=== PATIENT | female | born 1945 | race Caucasian/White ===

== ENCOUNTER 2017-01-27 10:10 | Emergency (ER) | payer OTHER ==
--- NOTE | 2017-01-27 10:39 | EDPHY ---
H & P Stated Complaint: skin inflammation Time Seen by Provider: 01/27/17 10:31 HPI/ROS: CHIEF COMPLAINT: Left cheek swelling. HISTORY OF PRESENT ILLNESS: The patient is a 71-year-old female who presents with left cheek erythema and swelling since , at which time she returned from a trip to [place]. The symptoms began as moderately sized papules on her cheek. The surrounding area then became erythematous and warm. She now has noticed some erythema and swelling on her right cheek. She denies sunburn, new cosmetics use. She denies trismus, difficulty swallowing, difficulty breathing. No dental pain. No fever, chills, chest pain, shortness of breath, palpitations, vomiting, diarrhea, urinary complaints, headache, lightheadedness. REVIEW OF SYSTEMS: Aside from elements discussed in the HPI, a comprehensive 10-point review of systems was reviewed and is negative. PAST MEDICAL HISTORY: Hypoglycemia, C-spine surgery SOCIAL HISTORY: Former smoker. VITAL SIGNS: Reviewed by me GENERAL: Well-developed, well-nourished, resting comfortably in no respiratory distress. HEENT: Atraumatic. Eyes: No icterus, no injection. Mouth: moist mucous membranes. No erythema or lesions. Neck: supple with no adenopathy. NEURO: Alert and oriented, grossly nonfocal. SKIN: Mildly swollen erythematous left cheek with papules. Scattered papules on right cheek. PSYCHIATRIC: Normal mentation, no agitation. Portions of this note were transcribed by a medical research associate. I personally performed a history, physical exam, medical decision making, and confirmed accuracy of information the transcribed note. Source: Patient Exam Limitations: No limitations - Personal History Current Tetanus Diphtheria and Acellular Pertussis (TDAP): Yes - Medical/Surgical History Hx Asthma: No Hx Chronic Respiratory Disease: No Hx Diabetes: No Hx Cardiac Disease: No Hx Renal Disease: No Hx Cirrhosis: No Hx Alcoholism: No Hx HIV/AIDS: No Hx Splenectomy or Spleen Trauma: No Other PMH: hypoglycemia, C-spine surgery - Social History Smoking Status: Former smoker Constitutional: Initial Vital Signs Temperature (C) 36.9 C 01/27/17 10:14 Heart Rate 64 01/27/17 10:14 Respiratory Rate 16 01/27/17 10:14 Blood Pressure 124/90 H 01/27/17 10:14 O2 Sat (%) 96 01/27/17 10:14 O2 Delivery Mode Room Air Allergies/Adverse Reactions: Sugars, Metabolically Active Allergy (Intermediate, Verified 09/06/15 13:47) Sulfa (Sulfonamide Antibiotics) Allergy (Intermediate, Verified 09/06/15 13:46) gluten Allergy (Verified 09/13/15 11:53) Home Medications: Medication Instructions Recorded Estrogen 1mg 0.5 mg PO Q2D 09/06/15 Estrogen 1mg 1 mg PO Q2D 09/06/15 Progesterone 2.5mg 1.25 mg PO HS 09/06/15 HYDROcodone/APAP 10/325 [Valdez 1 - 2 tab PO Q6 PRN #0 tab 09/30/15 10/325 (*)] Methocarbamol [Robaxin 750 mg (*)] 750 mg PO QID PRN #0 tab 09/30/15 Cephalexin [Keflex (RX)] 500 mg PO QID 7 Days 01/27/17 Medical Decision Making ED Course/Re-evaluation: This patient presents with erythema, swelling, and papules on her left cheek. She has no signs of systemic illness. I will place her on Keflex for cellulitis and she understands to follow up with her primary care provider if she does not improve. She is comfortable with the plan. Differential Diagnosis: Differential diagnoses for the patient's symptom complex was considered including but not limited to contact dermatitis, allergic reaction, cellulitis, insect bite with surrounding cellulitis, sunburn. Departure - Departure Disposition: Home, Routine, Self-Care Clinical Impression: Cellulitis of cheek Condition: Good Instructions: Cellulitis (ED) Additional Instructions: Take Keflex as prescribed. Do not use Retin-A while this infection is present. Follow up with your primary care provider this week if symptoms are not improving. Return for fever, vomiting, worsening swelling, red streaking, or any other serious worsening of condition. Referrals: ALEXSANDER CHU [Primary Care Provider] - As per Instructions Prescriptions: Cephalexin [Keflex (RX)] 500 mg PO QID 7 Days Report Scribed for: Josephine Jarvis Report Scribed by: Jaziel Troy Date of Report: 01/27/17 Time of Report: 10:48
[2017-01-27 11:17] VITALS: BP 113/78; PULSE 56; RESP 18; TEMP 97.5; O2SAT 93
== END 2017-01-27 11:17 | disposition home or self-care (01) ==
DX: L03.211 Cellulitis of face (principal); Z87.891 Personal history of nicotine dependence

== ENCOUNTER 2017-07-31 05:35 | Day surgery (SDC) | payer OTHER ==
[2017-07-31] MEDS ORDERED: GABAPENTIN 300 MG CAP PO ONE (05:49)
[2017-07-31] MEDS ORDERED: ACETAMINOPHEN 500 MG TAB PO ONE (05:49)
[2017-07-31] MEDS ORDERED: ceFAZolin 2 GM/SWFI 2 GM/20 ML SYR IVP ONE (05:49)
[2017-07-31] MEDS ORDERED: LR 1,000 ML IV ONE (05:52)
[2017-07-31] MEDS ORDERED: LIDOCAINE 1% 2 ML INJ ID PRN (05:52)
--- NOTE | 2017-07-31 06:43 | PDANEPAE ---
ANE History of Present Illness 72 year old female w/ PMHx of cervical radiculitis, cervical spinal stenosis and prior ACDF presents for right sided C3-C4 foraminotomy. ANE Past Medical History - Cardiovascular History Hx Hypertension: No Hx Arrhythmias: No Hx Chest Pain: No Hx Coronary Artery / Peripheral Vascular Disease: No Hx CHF / Valvular Disease: No Hx Palpitations: No - Pulmonary History Hx COPD: No Hx Asthma/Reactive Airway Disease: No Hx Recent Upper Respiratory Infection: No Hx Oxygen in Use at Home: No Hx Sleep Apnea: No Sleep Apnea Screening Result - Last Documented: Negative - Neurologic History Hx Cerebrovascular Accident: No Hx Seizures: No Hx Dementia: No - Endocrine History Hx Diabetes: No Hypothyroid: No Hyperthyroid: No Obesity: no - Renal History Hx Renal Disorders: Yes Renal History Comment: PREV INTERSTITIAL CYSTITIS NONE PAST 6 YEARS - Liver History Hx Hepatic Disorders: No - Neurological & Psychiatric Hx Hx Neurological and Psychiatric Disorders: No - Cancer History Hx Cancer: Yes Cancer History Comment: SKIN - Congenital Disorder History Hx Congenital Disorders: No - GI History GERD: no Hx Gastrointestinal Disorders: No Gastrointestinal History Comment: HYPOGLYCEMIA - Other Health History Other Health History: CJD. RECENT CERVICAL STEROID INJECTION - Chronic Pain History Chronic Pain: Yes (RT SIDE NECK INTO RT ARM AND SHLDR) - Surgical History Prior Surgeries: ACDF 09/2015. APPENDECTOMY ANE Review of Systems Review of Systems: - Exercise capacity Exercise capacity: >=4 METS METS (RN): 4 METS ANE Patient History - Allergies Allergies/Adverse Reactions: Sugars, Metabolically Active Allergy (Intermediate, Verified 09/06/15 13:47) Sulfa (Sulfonamide Antibiotics) Allergy (Intermediate, Verified 09/06/15 13:46) gluten Allergy (Verified 09/13/15 11:53) - Home Medications Home medications: home medication list seen and reviewed Home Medications: Estrogen 1mg 0.5 mg PO HS 09/06/15 [Last Taken 07/30/17 20:00] - NPO status NPO Status: no food or drink >8 hours - Anes Hx Anes Hx: no prior problems - Smoking Hx Smoking Status: Former smoker Marijuana use: Yes - Alcohol Use Alcohol Use: Rarely - Family Anes Hx Family Anes Hx: neg - N/A Family Hx Anesthesia Complications: NONE ANE Labs/Vital Signs - Vital Signs Vital Signs: reviewed preoperatively; see RN documention for details Height: 157.48 cm Weight: 53.07 kg ANE Physical Exam - Airway Neck exam: decreased ROM Mallampati Score: Class 2 Mouth exam: normal dental/mouth exam Mouth image: 1 - All Veneers, but in really good condition - Pulmonary Pulmonary: no respiratory distress - Cardiovascular Cardiovascular: regular rate and rhythym - ASA Status ASA Status: II ANE Anesthesia Plan Anesthesia Plan: general endotracheal anesthesia Lines/Monitors: arterial line (Possible arterial line based on blood pressure following induction. ) Total IV Anesthesia: No
[2017-07-31] MEDS ORDERED: CHLORHEXIDINE GLUC HIBICLENS 118 ML BTL TP ONE (06:44)
[2017-07-31] MEDS ORDERED: THROMBIN (BOVINE) 5,000 UNIT VIAL TP ONE ×2 (06:44→08:58)
[2017-07-31] MEDS ORDERED: BACITRACIN 50,000 UNITS/10 ML SYR IRR ONE (06:44)
[2017-07-31] MEDS ORDERED: BUPIVACAINE 0.25% 30 ML SDV ONE (06:44)
--- NOTE | 2017-07-31 06:50 | PDHPUP ---
History & Physical Update H&P update statement: This history and physical update is based on an assessment of the patient which was completed after admission or registration (within 24 hours), but prior to the surgery/procedure. H&P update: H&P reviewed & patient examined, no change in patient's condition since H&P completed
[2017-07-31] MEDS ORDERED: PROPOFOL 200 MG/20 ML VIAL ONE (06:54)
[2017-07-31] MEDS ORDERED: PROPOFOL/EMULSION 500 MG/50 ML BOTTLE IV ONE (06:54)
[2017-07-31] MEDS ORDERED: fentaNYL 100 MCG/2 ML INJ ONE ×2 (06:54→10:07)
[2017-07-31] MEDS ORDERED: REMIFENTANIL HCL 1 MG VIAL ONE (06:54)
[2017-07-31] MEDS ORDERED: MIDAZOLAM 2 MG/2 ML VIAL IVP ONE (07:06)
[2017-07-31] MEDS ORDERED: PHENYLEPHRINE HCL 100 MCG/ML SYR ONE (07:17)
[2017-07-31] MEDS ORDERED: DEXAMETHASONE 4 MG/ML VIAL ONE (07:25)
[2017-07-31] MEDS ORDERED: ONDANSETRON 4 MG/2 ML VIAL ONE (07:25)
[2017-07-31] MEDS ORDERED: POVIDONE-IODINE 30 GM OINTTUBE TP ONE (07:41)
[2017-07-31] MEDS ORDERED: epHEDrine SULFATE 10 MG/ML SYR ONE ×3 (08:04→08:43)
[2017-07-31] MEDS ORDERED: LR 500 ML IV PRN (08:20)
[2017-07-31] MEDS ORDERED: NALOXONE HCL 0.4 MG/ML INJ IVP PRN (08:20)
[2017-07-31] MEDS ORDERED: HYDROmorphONE/DILAUDID 1 MG/ML INJ IVP PRN (08:20)
[2017-07-31] MEDS ORDERED: HYDROCODONE/APAP 5/325 TAB PO PRN (08:20)
[2017-07-31] MEDS ORDERED: DEPO METHYLPREDNISOLONE 40 MG/ML SDV ONE (09:14)
[2017-07-31] MEDS ORDERED: KETOROLAC 30 MG/1 ML SDV ONE (09:18)
--- NOTE | 2017-07-31 09:49 | SOAPPROG ---
SOAP Progress Note Assessment/Plan: Post Op Visit: S: Awake and alert. Pt with expected neck pain O: AFVSS/PERRLA CN 2-12 grossly intact +lt touch 5/5 BUE/BLE = CDI A/P: 72 yo female that is s/p C3/4 foraminotomy -orders in place -dc when criteria met -call with any questions or concerns -pt and understand and agree 07/31/17 09:46 Objective: Vital Signs Temp Pulse Resp BP Pulse Ox 36.4 C 57 L 16 136/79 H 98 07/31/17 06:19 07/31/17 06:19 07/31/17 06:19 07/31/17 06:19 07/31/17 06:19 ICD10 Worksheet Patient Problems: Problems Problem Status Onset Cervical radiculitis Acute Cervical spinal stenosis Acute Cervicalgia Acute
[2017-07-31] MEDS: fentaNYL 100 MCG/2 ML INJ IVP PRN ×2 (10:09→10:43)
--- NOTE | 2017-07-31 10:13 | GOP ---
[f rep st] OPERATIVE REPORT DATE OF OPERATION: 07/31/2017 SURGEON: Precious Allen MD [employer] EXAMINER: Sean Medina, ANNE. PREOPERATIVE DIAGNOSIS: Cervical spondylosis, prior cervical fusion C4-5, 5-6, 6-7, right-sided keeley re cervicalgia with occipital pain. POSTOPERATIVE DIAGNOSIS: Cervical spondylosis, prior cervical fusion C4-5, 5-6, 6-7, right-sided sev ere cervicalgia with occipital pain. PROCEDURE PERFORMED: Posterior cervical foraminotomy, right C3-4 with decompression of the exiting C 4 nerve root with facetectomy (35339), microscope, fluoroscopy. FINDINGS: ESTIMATED BLOOD LOSS: 100 mL INDICATIONS: Ms. Stewart is an elderly female who had history of a multilevel cervical fusion with go od success who developed terrible right sided neck pain. Followup imaging did demonstrate evidence o f some arthritis at the occipital C1-C2 complex. However, there was also subaxial facet arthropathy and severe right-sided foraminal stenosis at C3-4 and I suggested a right C3-4 foraminotomy alone. I did not think that an adjacent segment fusion was warranted, but she understood this sometimes is ne cessary. I thought this was the most reasonable simple approach to try to get relief of the right-si ded neck and shoulder pain and indeed she did want to try this. The risk of nerve injury, spinal flu id leak and continued symptoms was discussed. DESCRIPTION OF PROCEDURE: Patient was taken to the operating room, placed in supine position. Gener al anesthesia was begun. She was placed in the [facility] head frame. Care was taken to pad all point s of contact. She was flipped prone onto chest rolls. Care was taken to pad all points of contact a nd her arms were papoosed at her side. She was secured to the bed with the back up and the neck flex ed at the cervicothoracic junction as well as the occipital cervical junction, but the neck itself ke pt parallel to the floor. She was sterilely prepped and draped in the usual fashion. A localizing x -ray was taken. We made a 14 mm incision above the C3-4 interspace. The subcutaneous tissue was dis sected using Bovie cautery down to the fascia. There was a bifid C3 spinous process and we removed t he right bifid portion of C3. Self-retaining retractors placed. A localizing x-ray was taken. Oper ating microscope was introduced. We drilled a right C3-4 foraminotomy. There were a lot of epidural veins and the some of these were coagulated, but there was a fair amount of bleeding from these. We identified the exiting C4 nerve root and decompressed along its course out beyond the C4 pedicle on the right-hand side and we decompressed from the C4 pedicle to the C3 pedicle. The lateral portion o f the facet was preserved. We did perform a medial facetectomy. We then irrigated with antibiotic s joselito solution, shot a final x-ray confirming the actual location of the decompression in the foramen and it was at C3-4, placed Depo-Medrol over the right C4 root and then closed the incision in multip le layers using Vicryl sutures. The patient was removed from the head frame, put back on the [facility] bed and transferred to recovery room. There were no complications. COMPLICATIONS: None. /[id number]/MODL
--- NOTE | 2017-07-31 10:13 | GOP ---
[f rep st] OPERATIVE REPORT DATE OF OPERATION: 07/31/2017 SURGEON: Precious Allen MD CRM DEVELOPER: Sean Medina, ANNE. PREOPERATIVE DIAGNOSIS: Cervical spondylosis, prior cervical fusion C4-5, 5-6, 6-7, right-sided keeley re cervicalgia with occipital pain. POSTOPERATIVE DIAGNOSIS: Cervical spondylosis, prior cervical fusion C4-5, 5-6, 6-7, right-sided sev ere cervicalgia with occipital pain. PROCEDURE PERFORMED: Posterior cervical foraminotomy, right C3-4 with decompression of the exiting C 4 nerve root with facetectomy ([id number]), microscope, fluoroscopy. FINDINGS: ESTIMATED BLOOD LOSS: 100 mL INDICATIONS: Ms. Stewart is an elderly female who had history of a multilevel cervical fusion with go od success who developed terrible right sided neck pain. Followup imaging did demonstrate evidence o f some arthritis at the occipital C1-C2 complex. However, there was also subaxial facet arthropathy and severe right-sided foraminal stenosis at C3-4 and I suggested a right C3-4 foraminotomy alone. I did not think that an adjacent segment fusion was warranted, but she understood this sometimes is ne cessary. I thought this was the most reasonable simple approach to try to get relief of the right-si ded neck and shoulder pain and indeed she did want to try this. The risk of nerve injury, spinal flu id leak and continued symptoms was discussed. DESCRIPTION OF PROCEDURE: Patient was taken to the operating room, placed in supine position. Gener al anesthesia was begun. She was placed in the [facility] head frame. Care was taken to pad all point s of contact. She was flipped prone onto chest rolls. Care was taken to pad all points of contact a nd her arms were papoosed at her side. She was secured to the bed with the back up and the neck flex ed at the cervicothoracic junction as well as the occipital cervical junction, but the neck itself ke pt parallel to the floor. She was sterilely prepped and draped in the usual fashion. A localizing x -ray was taken. We made a 14 mm incision above the C3-4 interspace. The subcutaneous tissue was dis sected using Bovie cautery down to the fascia. There was a bifid C3 spinous process and we removed t he right bifid portion of C3. Self-retaining retractors placed. A localizing x-ray was taken. Oper ating microscope was introduced. We drilled a right C3-4 foraminotomy. There were a lot of epidural veins and the some of these were coagulated, but there was a fair amount of bleeding from these. We identified the exiting C4 nerve root and decompressed along its course out beyond the C4 pedicle on the right-hand side and we decompressed from the C4 pedicle to the C3 pedicle. The lateral portion o f the facet was preserved. We did perform a medial facetectomy. We then irrigated with antibiotic s joselito solution, shot a final x-ray confirming the actual location of the decompression in the foramen and it was at C3-4, placed Depo-Medrol over the right C4 root and then closed the incision in multip le layers using Vicryl sutures. The patient was removed from the head frame, put back on the [facility] bed and transferred to recovery room. There were no complications. COMPLICATIONS: None. /[id number]/MODL
--- NOTE | 2017-07-31 10:13 | GOP ---
[f rep st] OPERATIVE REPORT DATE OF OPERATION: 07/31/2017 SURGEON: Precious Allen MD [employer] OFFICER: Sean Medina, ANNE. PREOPERATIVE DIAGNOSIS: Cervical spondylosis, prior cervical fusion C4-5, 5-6, 6-7, right-sided keeley re cervicalgia with occipital pain. POSTOPERATIVE DIAGNOSIS: Cervical spondylosis, prior cervical fusion C4-5, 5-6, 6-7, right-sided sev ere cervicalgia with occipital pain. PROCEDURE PERFORMED: Posterior cervical foraminotomy, right C3-4 with decompression of the exiting C 4 nerve root with facetectomy ([id number]), microscope, fluoroscopy. FINDINGS: ESTIMATED BLOOD LOSS: 100 mL INDICATIONS: Ms. Stewart is an elderly female who had history of a multilevel cervical fusion with go od success who developed terrible right sided neck pain. Followup imaging did demonstrate evidence o f some arthritis at the occipital C1-C2 complex. However, there was also subaxial facet arthropathy and severe right-sided foraminal stenosis at C3-4 and I suggested a right C3-4 foraminotomy alone. I did not think that an adjacent segment fusion was warranted, but she understood this sometimes is ne cessary. I thought this was the most reasonable simple approach to try to get relief of the right-si ded neck and shoulder pain and indeed she did want to try this. The risk of nerve injury, spinal flu id leak and continued symptoms was discussed. DESCRIPTION OF PROCEDURE: Patient was taken to the operating room, placed in supine position. Gener al anesthesia was begun. She was placed in the [facility] head frame. Care was taken to pad all point s of contact. She was flipped prone onto chest rolls. Care was taken to pad all points of contact a nd her arms were papoosed at her side. She was secured to the bed with the back up and the neck flex ed at the cervicothoracic junction as well as the occipital cervical junction, but the neck itself ke pt parallel to the floor. She was sterilely prepped and draped in the usual fashion. A localizing x -ray was taken. We made a 14 mm incision above the C3-4 interspace. The subcutaneous tissue was dis sected using Bovie cautery down to the fascia. There was a bifid C3 spinous process and we removed t he right bifid portion of C3. Self-retaining retractors placed. A localizing x-ray was taken. Oper ating microscope was introduced. We drilled a right C3-4 foraminotomy. There were a lot of epidural veins and the some of these were coagulated, but there was a fair amount of bleeding from these. We identified the exiting C4 nerve root and decompressed along its course out beyond the C4 pedicle on the right-hand side and we decompressed from the C4 pedicle to the C3 pedicle. The lateral portion o f the facet was preserved. We did perform a medial facetectomy. We then irrigated with antibiotic s joselito solution, shot a final x-ray confirming the actual location of the decompression in the foramen and it was at C3-4, placed Depo-Medrol over the right C4 root and then closed the incision in multip le layers using Vicryl sutures. The patient was removed from the head frame, put back on the [facility] bed and transferred to recovery room. There were no complications. COMPLICATIONS: None. /[id number]/MODL
[2017-07-31] MEDS ORDERED: HYDROCODONE/APAP 5/325 TAB ONE (10:25)
[2017-07-31 11:19] VITALS: PULSE 62; RESP 16
[2017-07-31 12:45] VITALS: TEMP 97.5
[2017-07-31 14:52] VITALS: BP 114/62; O2SAT 91
[2017-07-31] MEDS ORDERED: ESTROGEN PO SCH (21:00)
[2017-07-31] MEDS ORDERED: ESTRADIOL 0.5 MG TAB PO SCH (21:00)
--- NOTE | 2017-08-01 09:46 | POSTANESTH ---
Post Anesthetic Evaluation Cardiovascular Status: Normal, Stable, Similar to Pre-Op Cond Respiratory Status: Normal, Stable, Similar to Pre-op Cond. Level of Consciousness/Mental Status: Can Participate in Eval, Alert and Oriented Pain Control: Adequate, Prn Tx Ordered Nausea/Vomiting Control: Adequate, Prn Tx Ordered Complications Possibly Related to Anesthesia: None Noted
== END 2017-07-31 14:59 | disposition home or self-care (01) ==
LOC: FSGY 05:35
PROVIDERS: ATTEND Neurological Surgery
PROC: 00NW0ZZ Release Cervical Spinal Cord, Open Approach (ICD-10-PCS; principal; 2017-07-31 07:30)
DX: M47.22 Other spondylosis with radiculopathy, cervical region (principal); M54.81 Occipital neuralgia; Z98.1 Arthrodesis status; Z88.2 Allergy status to sulfonamides
CPT/HCPCS: J0171; J0690; J1030; J1100; J1885; J2250; J2370; J2405; J2704; J3010